=== PATIENT | male | born 1980 | race African-American/Black ===

== ENCOUNTER 2019-09-12 07:01 | Emergency (ER) | payer OTHER ==
[2019-09-12 07:57] VITALS: BMI 22.5
--- NOTE | 2019-09-12 07:59 | PDOC ---
History of Present Illness - General Stated Complaint: SUICIDAL Time Seen by Provider: 09/12/19 07:36 History Source: Patient Exam Limitations: No Limitations - History of Present Illness Initial Comments: 09/12/19 07:52 38 yo male h/o bipoloar, cocain abuse, [place] pt was recently was admitted to [facility] from 09/04 - 09/09 fro depression, then seen yesterday at emergency for asthma, here today c/o wanting to hurt him self. has thoughts of wanting to hang himself. [place], he called ems. pt states he has prior attempt of cutting his hand when he was a child. last cocain use was in the last 48 hrs since his discharge. states he want help with his drug problems.states he did not take his meds this am. [facility], and his [facility] are in [facility] there in a locker. does smoke use cocain and drink etoh pmhx: bipolar, substance abuse, asthma. meds thorazine 100 bid seroquel 50 po qhs, banphen 25 mg bid. prednisone 40 mg daily ( started 09/10 - 09/15) given today in ED 09/12/19 10:33 Past History - Past Medical History Allergies/Adverse Reactions: Allergies Allergy/AdvReac Type Severity Reaction Status Date / Time No Known Allergies Allergy Verified 09/12/19 08:06 Home Medications: Ambulatory Orders Albuterol Sulfate Inhaler - [Ventolin Hfa Inhaler -] 1 inh PO Q4H PRN 09/12/19 Diphenhydramine HCl [Benadryl -] 25 mg PO BID 09/12/19 Nicotine Polacrilex [Nicorette] 4 mg BC BID 09/12/19 Quetiapine Fumarate [Seroquel -] 50 mg PO HS 09/12/19 Anemia: No Asthma: Yes Cancer: No Cardiac Disorders: No CVA: No COPD: No CHF: No DVT: No Dementia: No Diabetes: No Dialysis: No GI Disorders: No Disorders: No HTN: No Hypercholesterolemia: No Kidney Stones: No Liver Disease: No Psychiatric Problems: Yes (paronoid schizophrenia, bipolar depression) Seizures: No Thyroid Disease: No Lung CA: No - Surgical History Abdominal Surgery: No Appendectomy: No Cardiac Surgery: No Cholecystectomy: No Gastric Stapling: No GI Surgery: No Lung Surgery: No Neurologic Surgery: No - Immunization History Immunization Up to Date: Yes Review of Systems - Review of Systems Constitutional: No: Chills, Diaphoresis HEENTM: No: Eye Pain Respiratory: No: Cough, Orthopnea, Shortness of Breath Cardiac (ROS): No: Chest Pain Musculoskeletal: No: Back Pain, Gout, Joint Pain Integumentary: No: Bruising, Change in Color Psychiatric: Yes: Depression All Other Systems: Reviewed and Negative *Physical Exam - Physical Exam 09/12/19 07:56 awake alert NAD lungs with faint wheezing right side, no crackles. abd soft nt nd skin warm and dry. psych positive SI, calm and cooperative. speech clear. denies AH or HI. Heart Score/ECG Review #1 General ECG Interpretation: Sinus Rhythm, Normal Rate (85), Normal Intervals, No acute ischemic changes ED Treatment Course - LABORATORY CBC & Chemistry Diagram: 09/12/19 08:20 09/12/19 08:20 Medical Decision Making - Medical Decision Making 09/12/19 07:58 38 yo male h/o cocaine and etoh abuse her wiht suicidal ideation. h/o bipoloar, recent cocaine use 48 hrs. differnetial substance induced mood / depression. pt clinically not intoxicated currently. plan labs tox screen. will consult psych. 09/12/19 10:33 pt was given duoneb, and dose of prednisone recently prescribed by urgent care for asthm, likley exacerbated by cocain use./ smoking pt cxr negative. labs remarkable for mild wbc elevation 12, likley related to steroids . other oliveira unremakralble. u tox positive for cocaine. c/w pt report. ekg unremarkable. no pscyh personal banking advisor this weekend for [facility], called [facility] RECRUITING ADMINISTRATOR unavailable [place]. d/w [facility] ED as pt recently dc from [facility] will see pt in ED . accepted to [facility] ED by Dr Urbina. Discharge - Discharge Information Problems reviewed: Yes Clinical Impression/Diagnosis: Depression Condition: Good Disposition: TRANSFER ACUTE CARE/OTHER HOSP - Admission No - Follow up/Referral - Patient Discharge Instructions - Post Discharge Activity - Transfer to Acute Care Facility Receiving Facility Name: [facility] (Psych) Transfer Comment: 09/12/19 10:36 transfer to ED [facility], for psych eval there. no psych availabe at [facility].
[2019-09-12 08:38] LABS: BASO % 0.8 % (0-2.0); EOS % 0.6 % (0-4.5); HEMATOCRIT 45.5 % (35.4-49); HEMOGLOBIN 15.5 GM/dL (11.7-16.9); LYMPH % 17.1 % (8-40); MCH 33.1 pg (25.7-33.7); MCHC 34.1 g/dl (32.0-35.9); MEAN PLT VOLUME 7.3 fl (7.5-11.1); MONO % 8.5 % (3.8-10.2); PLATELET COUNT 311 K/MM3 (134-434); RBC 4.69 M/mm3 (4.00-5.60); WHITE BLOOD COUNT 12.7 K/mm3 (4.0-10.0)
[2019-09-12 09:02] LABS: ALBUMIN 4.1 g/dl (3.4-5.0); ALK PHOS 76 U/L (45-117); ANION GAP 7 MMOL/L (8-16); BILIRUBIN,TOTAL 0.3 mg/dL (0.2-1); BLOOD UREA NITROGEN 27.4 mg/dL (7-18); CALCIUM 9.6 mg/dL (8.5-10.1); CHLORIDE 104 mmol/L (98-107); CO2 25 mmol/L (21-32); CREATININE 1.1 mg/dL (0.55-1.3); GLUCOSE,RANDOM 75 mg/dL (74-106); POTASSIUM 4.6 mmol/L (3.5-5.1); SGOT/AST 43 U/L (15-37); SGPT/ALT 36 U/L (13-61); SODIUM 137 mmol/L (136-145); TOT PROT 7.7 g/dl (6.4-8.2)
[2019-09-12 09:27] LABS: METHADONE, UR NEGATIVE ng/ml (CUTOFF=300); OPIATES, URI NEGATIVE ng/ml (CUTOFF=300); PHENCYCLIDINE,URINE NEGATIVE ng/ml (CUTOFF=25); URINE AMPHETAMINES NEGATIVE ng/ml (CUTOFF=500); URINE BARBITURATES NEGATIVE ng/ml (CUTOFF=200); URINE BENZODIAZEPINES NEGATIVE ng/ml (CUTOFF=200)
[2019-09-12 09:34] LABS: COCAINE, UR POSITIVE ng/ml (CUTOFF=300)
[2019-09-12] MEDS ORDERED: predniSONE 20 MG TABLET (UD) PO ONE (09:39)
[2019-09-12] MEDS ORDERED: ALBUTEROL SO4 2.5/IPRATROPIUM 0.5 INH SOL 3 ML VIAL.NEB. NEB ONE ×2 (09:39→09:43)
[2019-09-12] MEDS ORDERED: predniSONE 20 MG TABLET (UD) ONE (09:43)
[2019-09-12] MEDS ORDERED: HALOPERIDOL LACTATE 5 MG/ML IM ONE (11:18)
[2019-09-12] MEDS ORDERED: LORazepam 2 MG/ML SDV VIAL ONE (11:18)
[2019-09-12] MEDS ORDERED: HALOPERIDOL LACTATE 5 MG/ML ONE (11:19)
[2019-09-12 11:25] LABS: ANISOCYTOSIS 0; MACROCYTOSIS 0; PLATELET ESTIMATE NORMAL; TOXIC GRANULATION 1+
[2019-09-12 12:29] VITALS: BP 131/81; PULSE 78; TEMP 97.9
--- NOTE | 2019-09-12 16:58 | EKG ---
Test Reason : Blood Pressure : / mmHG Vent. Rate : 085 BPM Atrial Rate : 085 BPM P-R Int : 152 ms QRS Dur : 092 ms QT Int : 362 ms P-R-T Axes : 081 080 078 degrees QTc Int : 430 ms NORMAL SINUS RHYTHM BIATRIAL ENLARGEMENT RSR' OR QR PATTERN IN V1 SUGGESTS RIGHT VENTRICULAR CONDUCTION DELAY ABNORMAL ECG NO PREVIOUS ECGS AVAILABLE CLINICAL CORRELATION IS RECOMMENDED Confirmed by KIRSTIE PINA, RHYS ([id number]) on 09/12/2019 4:57:33 PM Referred By: Confirmed By:RHYS THACKER MD
== END 2019-09-12 12:22 | disposition short-term general hospital (02) ==
LOC: JER 07:01
PROC: 3E0F7GC Introduction of Other Therapeutic Substance into Respiratory Tract, Via Natural or Artificial Opening (ICD-10-PCS; principal; 2019-09-12)
PROC: 3E023GC Introduction of Other Therapeutic Substance into Muscle, Percutaneous Approach (ICD-10-PCS; 2019-09-12)
PROC: 3E023NZ Introduction of Analgesics, Hypnotics, Sedatives into Muscle, Percutaneous Approach (ICD-10-PCS; 2019-09-12)
PROC: 3E023NZ Introduction of Analgesics, Hypnotics, Sedatives into Muscle, Percutaneous Approach (ICD-10-PCS; 2019-09-12)
DX: F32.9 Major depressive disorder, single episode, unspecified (principal); F31.9 Bipolar disorder, unspecified; F20.0 Paranoid schizophrenia; F11.10 Opioid abuse, uncomplicated; F14.10 Cocaine abuse, uncomplicated; J45.909 Unspecified asthma, uncomplicated; Z59.0 Homelessness
CPT/HCPCS: 36415; 71046-TC-FY; 80053; 80307; 85025; 93005; 93010; 94640; 96372; 99285-25

== ENCOUNTER 2020-11-17 18:25 | Inpatient (IN) | payer OTHER ==
[2020-11-17] MEDS ORDERED: NICOTINE POLACRILEX 2 MG GUM BC PRN (21:40)
[2020-11-17] MEDS ORDERED: MAGNESIUM HYDROX 2400MG/30ML ORAL SUSPENSION 30 ML CUP PO PRN (21:40)
[2020-11-17] MEDS ORDERED: IBUPROFEN 400 MG TABLET (FP) PO PRN (21:40)
[2020-11-17] MEDS ORDERED: MAGNESIUM CITRATE 300 ML BOTTLE PO PRN (21:40)
[2020-11-17] MEDS ORDERED: MAG HYDROX/AL HYDROX/SIMETH 30 ML UNIT-DOSE CUP PO PRN (21:40)
[2020-11-17] MEDS ORDERED: LOPERAMIDE HCL 2 MG CAPSULE PO PRN (21:40)
[2020-11-17] MEDS ORDERED: ACETAMINOPHEN 325 MG TABLET (FP) PO PRN (21:40)
[2020-11-17] MEDS ORDERED: guaiFENesin 200 MG/10 ML 10 ML UNIT-DOSE CUPS PO PRN (21:40)
[2020-11-17] MEDS ORDERED: P-EPHED 60MG/TRIPROLIDI 2.5MG TABLET PO PRN (21:40)
[2020-11-17 22:04] VITALS: BMI 21.9
[2020-11-17] MEDS ORDERED: TUBERCULIN PPD 5 TU/0.1ML VIAL ID ONE (23:06)
[2020-11-17] MEDS: MELATONIN 5 MG TABLETS PO SCH (23:07)
[2020-11-17] MEDS: THIAMINE HCL 100 MG TABLET (FP) PO SCH (23:07)
[2020-11-18] MEDS: PRENATAL VITAMINS W/ FOLIC ACID TABLET (FP) PO SCH (09:47)
[2020-11-18] MEDS: NICOTINE 14 MG/24 HOURS TOPICAL PATCH TD SCH (09:48)
[2020-11-18 11:38] LABS: HEMATOCRIT 43.5 % (35.4-49); HEMOGLOBIN 14.4 GM/dL (11.7-16.9); MCH 32.4 pg (25.7-33.7); MCHC 33.2 g/dl (32.0-35.9); MEAN CELL VOLUME 97.5 fl (80-96); MEAN PLT VOLUME 8.7 fl (7.5-11.1); PLATELET COUNT 268 K/MM3 (134-434); RBC 4.46 M/mm3 (4.00-5.60); RDW 13.5 % (11.9-15.9); WHITE BLOOD COUNT 6.7 K/mm3 (4.0-10.0)
[2020-11-18 11:40] LABS: BLOOD UREA NITROGEN 20.1 mg/dL (7-18); CALCIUM 9.2 mg/dL (8.5-10.1)
[2020-11-18 11:41] LABS: ALBUMIN 3.8 g/dl (3.4-5.0)
[2020-11-18 11:44] LABS: CREATININE 1.4 mg/dL (0.55-1.3)
[2020-11-18 11:45] LABS: BILIRUBIN,TOTAL 0.3 mg/dL (0.2-1); TOT PROT 7.2 g/dl (6.4-8.2)
[2020-11-18] MEDS: ARIPiprazole 10 MG TABLET PO SCH (11:58)
[2020-11-18] MEDS: DULoxetine HCL 20 MG CAPSULE.DR PO SCH (11:59)
[2020-11-18] MEDS: MELATONIN 5 MG TABLETS PO SCH (21:22)
[2020-11-18] MEDS: THIAMINE HCL 100 MG TABLET (FP) PO SCH (21:22)
[2020-11-19] MEDS ORDERED: PT OWN MED DRAWER 7, Y5N ONE (08:37)
[2020-11-19] MEDS: DULoxetine HCL 20 MG CAPSULE.DR PO SCH (09:35)
[2020-11-19] MEDS: PRENATAL VITAMINS W/ FOLIC ACID TABLET (FP) PO SCH (09:36)
[2020-11-19] MEDS: NICOTINE 14 MG/24 HOURS TOPICAL PATCH TD SCH (09:36)
[2020-11-19] MEDS: ARIPiprazole 10 MG TABLET PO SCH (09:36)
[2020-11-19] MEDS: THIAMINE HCL 100 MG TABLET (FP) PO SCH (21:15)
[2020-11-19] MEDS: MELATONIN 5 MG TABLETS PO SCH (21:15)
[2020-11-20] MEDS: PRENATAL VITAMINS W/ FOLIC ACID TABLET (FP) PO SCH (09:40)
[2020-11-20] MEDS: DULoxetine HCL 20 MG CAPSULE.DR PO SCH (09:41)
[2020-11-20] MEDS: ARIPiprazole 10 MG TABLET PO SCH (09:41)
[2020-11-20] MEDS: NICOTINE 14 MG/24 HOURS TOPICAL PATCH TD SCH (09:41)
[2020-11-20 20:17] LABS: URINE APPEARANCE CLEAR; URINE BILIRUBIN NEGATIVE (NEGATIVE); URINE COLOR YELLOW; URINE GLUCOSE (UA) NEGATIVE (NEGATIVE); URINE KETONE TRACE (NEGATIVE); URINE LEUK ESTERASE NEGATIVE (NEGATIVE); URINE NITRITE NEGATIVE (NEGATIVE); URINE PROTEIN NEGATIVE (NEGATIVE); URINE UROBILINOGEN 0.2 mg/dL (0.2-1.0)
[2020-11-20] MEDS: THIAMINE HCL 100 MG TABLET (FP) PO SCH (21:11)
[2020-11-20] MEDS: MELATONIN 5 MG TABLETS PO SCH (21:11)
[2020-11-21 06:54] VITALS: TEMP 97.9
[2020-11-21] MEDS: ARIPiprazole 10 MG TABLET PO SCH (09:50)
[2020-11-21] MEDS: PRENATAL VITAMINS W/ FOLIC ACID TABLET (FP) PO SCH (09:50)
[2020-11-21] MEDS: DULoxetine HCL 20 MG CAPSULE.DR PO SCH (09:50)
[2020-11-21] MEDS: NICOTINE 14 MG/24 HOURS TOPICAL PATCH TD SCH (09:51)
[2020-11-21] MEDS: MELATONIN 5 MG TABLETS PO SCH (21:14)
[2020-11-21] MEDS: THIAMINE HCL 100 MG TABLET (FP) PO SCH (21:15)
[2020-11-22 07:08] VITALS: BP 128/92; PULSE 55
[2020-11-22] MEDS ORDERED: PT OWN MED DRAWER 7, Y5N ONE (09:44)
[2020-11-22] MEDS: NICOTINE 14 MG/24 HOURS TOPICAL PATCH TD SCH (09:45)
[2020-11-22] MEDS: PRENATAL VITAMINS W/ FOLIC ACID TABLET (FP) PO SCH (09:45)
[2020-11-22 10:07] LABS: SARS-CoV-2 NAA Not Detected (Not Detected)
[2020-11-22] MEDS: ARIPiprazole 10 MG TABLET PO SCH (10:27)
[2020-11-22] MEDS: DULoxetine HCL 20 MG CAPSULE.DR PO SCH (10:27)
== END 2020-11-22 12:15 | disposition home or self-care (01) | DRG 772 ==
LOC: YASAS 18:25 → Y5N 21:36
PROVIDERS: ADMIT Allergy & Immunology; ATTEND Allergy & Immunology
PROC: HZ42ZZZ Group Counseling for Substance Abuse Treatment, Cognitive-Behavioral (ICD-10-PCS; principal; 2020-11-17)
DX: F10.20 Alcohol dependence, uncomplicated (principal); F14.20 Cocaine dependence, uncomplicated; F16.20 Hallucinogen dependence, uncomplicated; F17.210 Nicotine dependence, cigarettes, uncomplicated; F20.9 Schizophrenia, unspecified; F31.9 Bipolar disorder, unspecified; J45.909 Unspecified asthma, uncomplicated; F19.282 Other psychoactive substance dependence with psychoactive substance-induced sleep disorder; F19.24 Other psychoactive substance dependence with psychoactive substance-induced mood disorder; Z86.59 Personal history of other mental and behavioral disorders; Z59.0 Homelessness; Z56.0 Unemployment, unspecified; Z91.5 Personal history of self-harm
CPT/HCPCS: 36415; 71046-TC-FY; 80053; 81003; 85027; 86780; 93005; 93010; C9803; U0003; U0005